=== PATIENT | female | born 1970 | race Two or more races ===

== ENCOUNTER 2024-12-14 06:58 | Inpatient (IN) | payer OTHER ==
[2024-12-14] VITALS (10 sets, daily range): BP systolic 107–137; BP diastolic 68–83; PULSE 82–95; RESP 16–17; TEMP 97.7–98.4; O2SAT 93–95
[~2024-12-14] VITALS: Ht 170.2 cm; Wt 111.5 kg
[2024-12-14] MEDS: VANCOMYCIN HCL 1000 MG VL ONE ×2 (08:10→13:28)
[2024-12-14 08:15] LABS: Alanine Aminotransferase 15 U/L (7-40); Albumin 4.2 g/dL (3.2-4.8); Alkaline Phosphatase 73 U/L (46-116); Anion Gap 8 (5-15); BUN/Creatinine Ratio 10.0 (10.0-20.0); Calcium 9.1 mg/dL (8.7-10.4); Carbon Dioxide 27 mmol/L (20-31); Chloride 105 mmol/L (98-107); Glucose 101 mg/dL (74-106); Potassium 3.6 mmol/L (3.5-5.1); Sodium 140 mmol/L (136-145); Total Protein 7.0 g/dL (5.7-8.2)
[2024-12-14 08:16] LABS: Bilirubin, Total 0.6 mg/dL (0.2-1.0); Blood Urea Nitrogen 8 mg/dL (9-23)
[2024-12-14 08:19] LABS: Hematocrit 41.3 % (36.0-46.0); Hemoglobin 14.0 g/dL (12.2-16.2); Mean Corpuscular Hemoglobin 31.9 pg (28.0-32.0); Mean Corpuscular Volume 94.2 fL (80.0-100.0); Nucleated Red Blood Cells % 0.0 %
[2024-12-14 09:32] LABS: INR 0.93 (0.9-1.15); Partial Thromboplastin Time 28.5 SEC (24.5-34.5); Prothrombin Time 9.9 sec (9.3-11.8)
[2024-12-14] MEDS: ACETAMINOPHEN IV 1000 MG/100ML (10MG/ML) IV ONE (09:47)
[2024-12-14] MEDS ORDERED: fentaNYL CITRATE 100 MCG/2 ML VL ONE (12:44)
[2024-12-14] MEDS ORDERED: PROPOFOL 10 MG/ML 20 ML IV ONE ×2 (12:44→15:56)
[2024-12-14] MEDS ORDERED: MIDAZOLAM HCL 2MG/2ML 2ml VIAL (1mg/ml) ONE (12:44)
[2024-12-14] MEDS ORDERED: SODIUM CHLORIDE LOCK 10 ML ONE (12:44)
[2024-12-14] MEDS ORDERED: ONDANSETRON HCL 4 MG/2 ML VIAL ONE ×2 (12:44→15:33)
[2024-12-14] MEDS ORDERED: LIDOCAINE 1% INJ PF 5ML AMP ONE (12:44)
[2024-12-14] MEDS ORDERED: MORPHINE SULFATE INJ 2 MG/ml SYRG IV PRN (13:00)
[2024-12-14] MEDS ORDERED: ONDANSETRON HCL 4 MG/2 ML VIAL IV PRN ×2 (13:00→16:30)
[2024-12-14] MEDS: LACTATED RINGER'S 1,000 ML IV SCH (13:00)
[2024-12-14] MEDS ORDERED: ACETAMINOPHEN 325 MG TAB PO PRN (13:00)
[2024-12-14] MEDS ORDERED: NITROGLYCERIN 0.4 MG SL TAB SL PRN (13:00)
[2024-12-14] MEDS: TETRACAINE 1% INJ 2 ML VIAL IJ ONE (13:10)
[2024-12-14] MEDS: BUPIVACAINE 0.25% INJ 50ML VIAL ONE (13:26)
[2024-12-14] MEDS: TRANEXAMIC ACID 20 ML ONE (13:26)
[2024-12-14] MEDS: CEFEPIME 1GM/50ML 0 ML IV ONE (13:27)
[2024-12-14] MEDS: PREGABALIN CAPSULE 75 MG CAP PO ONE (13:59)
[2024-12-14] MEDS: CELECOXIB 100 MG CAP PO ONE (13:59)
[2024-12-14] MEDS ORDERED: KETOROLAC TROMETH 30 MG/ML 1ML VIAL ONE (15:33)
[2024-12-14] MEDS: MORPHINE SULF PF 5 MG/10 ML VIAL ONE (15:55)
[2024-12-14] MEDS: KETOROLAC TROMETH 30 MG/ML 1ML VIAL ONE (15:55)
--- NOTE | 2024-12-14 16:00 | DVHOP2 ---
Operative Report - 2 Report Details Date: 12/14/24 Preop Diagnosis: Right Hip Osteoarthritis Postop Diagnosis: Same Surgeon: Jonn Adame MD Anesthesiologist: Victorino Anesthesia: Regional Implant: Farzana Z1, G7 dual mobility Consent: The patient was informed of the risks and benefits of the procedure. These include but are not limited to complications of anesthesia, postoperative infection, incomplete relief of symptoms, recurrence of symptoms, damage to blood vessels, nerves and tendons, deep venous thrombosis, pulmonary embolism and possible need for repeat surgery in the future. Estimated Blood Loss: 300 Name of Procedure Performed Right Total Hip Procedure Details Procedure Details: Preoperative medical and anesthesia clearance was obtained. The patient was seen in the preoperative area, and the operative site was marked and verified by myself, the orthopedic team, and the patient. All questions were addressed, documentation was reviewed, and the patient was transported to the operating room in stable condition. Upon arrival in the operating room, anesthesia was administered. The patient received prophylactic antibiotics and tranexamic acid. A surgical time-out was performed, confirming the correct operative site. The patient was positioned in the lateral decubitus position with appropriate padding to the axilla, lower extremities, and pelvis. The nonoperative leg was fitted with a compression stocking and sequential compression device. The operative site was prepped and draped in the standard sterile fashion. The surgical team utilized body exhaust suits. A posterior incision was made just posterior to the greater trochanter of the right hip. Dissection was carried through the subcutaneous tissue using electr ocautery. The fascia of the gluteus ángela was split in line with its fibers, and a portion of the distal iliotibial band was incised. A Charnley self- retaining retractor was placed, with care taken to protect the sciatic nerve. The hip was internally rotated, and the short external rotators were detached from the greater trochanter. Capsulotomy was performed, and the hip was disl ocated posteriorly. Milla retractors were used to protect the soft tissues, and femoral neck osteotomy was performed according to preoperative templating. The femoral head was removed and measured. Attention was then directed to the acetabulum. Acetabular retractors were placed for exposure. Large osteophytes were identified circumferentially around the acetabulum and were meticulously excised to improve visualization and facilitate component placement. The labrum and pulvinar were excised. Sequential reaming was performed to the appropriate size. A trial acetabular component was inserted and found to have satisfactory fit. The definitive acetabular component was implanted at approximately 45 degrees of abduction and 20 degrees of anteversion, with fixation augmented by the appropriate number of screws. The liner was inserted, confirmed to be fully seated, and tested for stability. Retractors were removed, and attention was turned to the femur. A femoral elevator was used for exposure. The piriformis was excised. A Charnley awl, box osteotome, and lateralizing reamer were used to access the proximal femur. Sequential reaming and broaching were performed, and the appropriate trial broach was selected. The calcar was planed. Multiple trial reductions were performed to assess range of motion, stability, and leg length. The definitive femoral component was implanted, and the femoral trunnion was cleaned and dried. The femoral head was impacted, and the hip was reduced. A dilute betadine soak and pulsatile lavage were performed. Local anesthetic cocktail was injected into the soft tissues. The capsule and short external rotators were reapproximated with #5 FiberWire. Irrigation was repeated, and the fascia was closed with #1 absorbable suture. Subcutaneous tissue was closed with 2-0 absorbable suture, and the skin was closed with surgical david. A sterile dressing was applied, and drapes were removed. An abduction pillow was placed, and the patient was transferred to a hospital bed and taken to the recovery room in stable condition. Instrument and sponge counts were correct. I was present for the entire procedure. Condition Good Disposition Shelter JONN ADAME DO Dec 14, 2024 16:00
[2024-12-14] MEDS ORDERED: hydrALAZINE HCL 20 MG/ML VL IV PRN (16:30)
[2024-12-14] MEDS ORDERED: NALOXONE HCL 0.4 MG/ML VIAL IV PRN (16:30)
[2024-12-14] MEDS ORDERED: FLUMAZENIL 0.1 MG/ML INJ 10ML MDV IV PRN (16:30)
[2024-12-14] MEDS ORDERED: HYDROmorphone HCL 2 MG/ML VL/or syr IV PRN (16:30)
[2024-12-14] MEDS ORDERED: fentaNYL CITRATE 100 MCG/2 ML VL IV PRN (16:30)
[2024-12-14] MEDS ORDERED: ALBU1AER6 IN (18:10)
[2024-12-14] MEDS ORDERED: LOSA-534 PO (18:10)
[2024-12-14] MEDS ORDERED: TRAZ-227 PO (18:10)
[2024-12-14] MEDS ORDERED: AMIT25TA20 PO (18:10)
[2024-12-14] MEDS ORDERED: ARIP5TAB22 PO (18:10)
--- NOTE | 2024-12-14 20:00 | DVH ---
XY PELVIS AP HISTORY: postop TECHNICAL DATA: Frontal view was obtained of the pelvis. COMPARISON: None FINDINGS: Status post right hip torso plasty. No evidence of hardware complication. Subcutaneous emphysema and staple lines noted over the right femoral surgical site. IMPRESSION: 1. Right hip total arthroplasty with near anatomic alignment
[2024-12-14] MEDS: DOCUSATE SOD 100 MG CAP PO SCH (22:13)
[2024-12-15] VITALS (23 sets, daily range): BP systolic 106–149; BP diastolic 66–86; PULSE 18–99; RESP 16–97; TEMP 97.8–98.6; O2SAT 92–100
[2024-12-15 07:17] LABS: Hematocrit 33.0 % (36.0-46.0); Hemoglobin 11.4 g/dL (12.2-16.2); Mean Corpuscular Hemoglobin 32.6 pg (28.0-32.0); Mean Corpuscular Volume 94.7 fL (80.0-100.0); Nucleated Red Blood Cells % 0.0 %
[2024-12-15 07:27] LABS: Chloride 102 mmol/L (98-107); Potassium 4.3 mmol/L (3.5-5.1)
[2024-12-15 07:28] LABS: Anion Gap 7 (5-15); Carbon Dioxide 26 mmol/L (20-31)
[2024-12-15 07:33] LABS: BUN/Creatinine Ratio 15.3 (10.0-20.0); Blood Urea Nitrogen 13 mg/dL (9-23); Calcium 8.3 mg/dL (8.7-10.4); Glucose 126 mg/dL (74-106); Sodium 135 mmol/L (136-145)
--- NOTE | 2024-12-15 08:06 | DVHPN2 ---
Progress Note Date Seen: Dec 15, 2024 Medical Necessity Reason Pt with a Central, PICC or Fol: No Subjective Patient reports: No new complaints Objective vital signs Vital Sign Date Time Temp Pulse Resp B/P (MAP) Pulse Ox O2 Delivery O2 Flow Rate FiO2 12/15/24 06:02 78 16 100 12/15/24 05:00 98.1 122/70 (87) 98.1 12/14/24 20:00 Room Air* 0 21 Total Intake and Output 12/14/24 12/14/24 12/15/24 15:00 23:00 07:00 Intake Total 100 ml 1100 ml Balance 100 ml 1100 ml medications Current Medications Medications Dose Ordered Sig/Tyrell Route Start Time Stop Time Status Last Admin Dose Admin Lactated Ringer's 1,000 ml @ 100 mls/hr Q10H IV 12/14/24 13:00 12/15/24 04:16 100 MLS/HR Acetaminophen 650 mg Q6HP PRN PO 12/14/24 13:00 Oxycodone/ Acetaminophen 1 tab Q4HP PRN PO 12/14/24 13:00 Hydromorphone HCl 1 mg Q2HP PRN IV 12/14/24 13:00 Ondansetron HCl 4 mg Q6HP PRN IV 12/14/24 13:00 Docusate Sodium 100 mg Q12HR PO 12/14/24 22:00 12/14/24 22:13 100 MG Enoxaparin Sodium 40 mg DAILY SC 12/15/24 10:00 Nitroglycerin 0.4 mg Q5MINP PRN SL 12/14/24 13:00 Morphine Sulfate 2 mg Q30M PRN IV 12/14/24 13:00 Oxycodone HCl 10 mg ONCE PRN PO 12/14/24 16:30 Examination: GENERAL:Normal, MSK:Abnormal laboratory and microbiology Laboratory Tests 12/15/24 06:31 Test 12/15/24 06:31 Range/Units Serum Glucose 126 H 74-106 mg/dL Problem List/Assessment/Plan Problem List/Assessment/Plan 54 year old female who is s/p Right BRITNI POD 1 1. Pain control 2. WBAT 3. Physical therapy 4. DVT ppx 5. d/c planning for rehab center possibly tomorrow Plan discussed with: Patient My Orders My Orders Orders - AMIRA,JADEN R GLOVE FORMER Procedure Category Date Status Time Admit ADMIT 12/14/24 Transmitted 12:53 Patient Condition COMORDER 12/14/24 Transmitted Stable 12:53 Regular Diet DIET 12/14/24 Transmitted Lunch Vital Signs LUDWIN 12/14/24 In Process 12:53 Lactated Ringer's PHA 12/14/24 In Process 13:00 Acetaminophen Tablet PHA 12/14/24 In Process (Tylenol Tablet) 13:00 Oxycodone W/ Acet PHA 12/14/24 In Process 5/325mg Tab (Percocet 13:00 Hydromorphone PHA 12/14/24 In Process Injection (Dilaudid 13:00 Ondansetron Hcl PHA 12/14/24 In Process (Zofran) 13:00 Docusate Sodium PHA 12/14/24 In Process Capsule (Colace 22:00 Pt Request For Service PT 12/14/24 Logged 12:53 Call/Page LUDWIN 12/14/24 In Process Hospitalist/Atten Fo 12:53 Sequential LUDWIN 12/14/24 In Process Compression Device 12:53 Pelvis Ap XY 12/14/24 Resulted 16:00 Incentive Spirometry ORDERS 12/14/24 Transmitted 12:53 Enoxaparin Sodium PHA 12/15/24 In Process (Lovenox) 10:00 Nitroglycerin PHA 12/14/24 In Process Sublingual (Ntrostat 13:00 Morphine Sulfate PHA 12/14/24 In Process Injection 13:00 Stat Ekg For Chest LUDWIN 12/14/24 In Process Pain 12:53 Notify Md Of Changes LUDWIN 12/14/24 In Process From Base 12:53 Parks Recreation Coordinator For LUDWIN 12/14/24 In Process 24 Hours 12:53 Emergency Dysrhythmia LUDWIN 12/14/24 In Process Protocol 12:53 Rhythm Strips Once LUDWIN 12/14/24 In Process Every Shift 12:53 Oxygen By Nasal RT 12/14/24 Transmitted Cannula 12:53 * Hospitalist Consult CONS 12/14/24 Transmitted 16:00 Date of Service: Dec 15, 2024 Billing Provider: NAMITA POPE MD Common Visit Codes: NOT BILLABLE JADEN COLLIER NP Dec 15, 2024 08:06
[2024-12-15] MEDS: ENOXAPARIN SOD 40 MG/0.4 ML SYRINGE SC SCH (09:20)
[2024-12-15] MEDS: OXYCODONE W/ ACETAMINOPHEN 5/325MG TABLET PO PRN (10:39)
--- NOTE | 2024-12-15 16:38 | DVHDS2 ---
Discharge Summary Date of Admission Dec 14, 2024 at 12:53 Date of Discharge: Dec 15, 2024 Wounds: If the wound is draining please change the gauze pad on the wound until it stops. If drainage persists past 10 days please notify our office. If there is a sticky gel dressing over your wound, you may leave this in place for as long as it is clean and dry. If it becomes loose or causes skin irritation, it is OK to remove it and place clean gauze over your wound. 1. You might notice some bruising around the surgical site, this is normal. 2. Check your temperature on a daily basis. Please note that a low-grade temp below 101 is not uncommon after surgery especially during the first 3 days. Notify the office if your temperature spikes above 101.5 after the 3rd post- operative date. 3. Many patients experience significant swelling in the thigh, this may extend below the knee and sometimes to the ankle. Swelling increases during the first week and subsides during the following week. 4. Provided you have been on a blood thinner since surgery and have been up and about at least three times per day, the risk of a blood clot is low and this swelling is an expected part of recovery. It will largely or completely resolve by your first post-operative visit. 5. [place], if present, will be removed at 2 weeks during initial post-op visit. Labs/Diagnostic Data: Laboratory Results Test 12/15/24 06:31 12/14/24 07:31 White Blood Count 10.2 10^3/uL (4.4-10.8) Red Blood Count 3.48 10^6/uL (4.0-5.20) Hemoglobin 11.4 g/dL (12.2-16.2) Hematocrit 33.0 % (36.0-46.0) Mean Corpuscular Volume 94.7 fL (80.0-100.0) Mean Corpuscular Hemoglobin 32.6 pg (28.0-32.0) Mean Corpuscular Hemoglobin Concent 34.4 g/dL (32.0-36.0) Red Cell Distribution Width 12.6 % (11.8-14.3) Platelet Count 246 10^3/uL (140-450) Mean Platelet Volume 8.1 fL (6.9-10.8) Neutrophils (%) (Auto) 86.4 % (37.0-80.0) Lymphocytes (%) (Auto) 7.6 % (10.0-50.0) Monocytes (%) (Auto) 6.0 % (0.0-12.0) Eosinophils (%) (Auto) 0.0 % (0.0-7.0) Basophils (%) (Auto) 0.0 % (0.0-2.0) Neutrophils # (Auto) 8.8 10 ^3/uL (1.6-8.6) Lymphocytes # (Auto) 0.8 10 ^3/uL (0.4-5.4) Monocytes # (Auto) 0.6 10 ^3/uL (0-1.3) Eosinophils # (Auto) 0 10 ^3/uL (0-0.8) Basophils # (Auto) 0 10 ^3/uL (0-0.2) Nucleated Red Blood Cells 0.0 % Sodium Level 135 mmol/L (136-145) Potassium Level 4.3 mmol/L (3.5-5.1) Chloride Level 102 mmol/L (98-107) Carbon Dioxide Level 26 mmol/L (20-31) Anion Gap 7 (5-15) Blood Urea Nitrogen 13 mg/dL (9-23) Creatinine 0.85 mg/dL (0.550-1.02) Glomerular Filtration Rate Calc 81 mL/min (>90) BUN/Creatinine Ratio 15.3 (10.0-20.0) Serum Glucose 126 mg/dL (74-106) Calcium Level 8.3 mg/dL (8.7-10.4) Prothrombin Time 9.9 sec (9.3-11.8) Prothrombin Time INR 0.93 (0.9-1.15) Activated Partial Thromboplast Time 28.5 SEC (24.5-34.5) Total Bilirubin 0.6 mg/dL (0.2-1.0) Aspartate Amino Transferase (AST) 18 U/L (13-40) Alanine Aminotransferase (ALT) 15 U/L (7-40) Alkaline Phosphatase 73 U/L (46-116) Total Protein 7.0 g/dL (5.7-8.2) Albumin 4.2 g/dL (3.2-4.8) Beta HCG, Quantitative 0.9 mIU/mL (1.5-4.2) Other Laboratory Tests 12/15/24 06:31 Brief Hx & Hospital Course: right total hip arthroplasty Condition at Discharge: Good Final Diagnosis/Problems List Same Discharge Disposition: Snf Facility Discharge Instruct/Medications Diet: See Comment Diet comment: may advance diet as tolerated drink, plenty of fluids Activity: See Comment Activity comment: 1.You can bear as much weight as you tolerate on your hip unless specifically instructed otherwise. You may use the walking aid which you were discharged with and switch to a cane whenever you feel comfortable doing so. You should use an assistive device until you can walk comfortably without it. Keep in mind that every patient moves at their own speed of recovery so take your time. 2.A physical therapist will visit you at home. 3. Although guarantees against a dislocation do not exist, the hip was noted to be sufficiently stable in surgery. Below are motions that you should dischargenot do for 4-6 weeks, depending on the surgical approach used. If there are questions, please call the office. a.Bend forward past 90 degrees b.Sit on a regular low chair, couch, car seat etc... c.Cross your legs d.Use a regular low toilet seat. e.Sleep on your stomach or on either side. 3.High impact activity such as jumping, aerobics, tennis, and skiing are not permitted during the first 3 months after surgery. These activities can contribute to accelerated wear and should be done with caution after this time. Discuss this with your surgeon if you have questions. 4.Although a bath or whirlpool is NOT permitted during the first 2-3 weeks, you may shower as soon as you get home from the hospital provided you are able to keep your bandage clean and dry and there is no wound drainage. If you are unable to place a secured covering over your bandage bed bath/sponge bath may likely be the more appropriate option. 5.Swimming is not permitted until the wound is healed, which typically occurs approximately 3-4 weeks after surgery. Follow Up/Referral: 1.Driving is not permitted within the first 2 weeks. 2.Your first postoperative visit will take place 2weeks after discharge. Please call the office to arrange this appointment. 3.Antibiotic preventative treatment is required before dental or other invasive procedures. Please ask your surgeon about this at your first postoperative visit. Your hip replacement contains metal which may activate metal detectors. You may wish to carry a letter from your surgeon to communicate this to security personnel. If you experience chest pain, shortness of breath or severe painful calf swelling, go to the nearest emergency room to be evaluated. Please call our office once your situation is stabilized. Medications: 1.You will be discharged with pain medication, Aspirin as a blood thinner and sometimes an anti-inflammatory medication such as Celebrex or Mobic might be prescribed. Please follow the instructions regarding these medicines as provided by your nurse at the hospital. 2.Narcotic pain medication has side effects, including constipation. Please ensure you continue to take stool softeners (Colace, Senna) while taking your pain medication to help protect against constipation. Getting up and moving around at least a few times per day helps with this also. 3.Lovenox 40 Sq x 12 days followed by one regular strength 325 mg coated aspirin daily for 4 weeks after surgery. Then, take one baby aspirin, 81 mg daily for 6 weeks more. A major, yet preventable, complication of Orthopaedic Surgery is a blood clot (DVT). It is important not to miss any doses of this important medication. 4.You should restart all of your prescription medications once discharged unless specifically instructed otherwise. 5.Herbal supplements may be restarted 2 weeks after surgery. Scheduled Amitriptyline Hcl (Amitriptyline Hcl), 100 MG PO HS, (Reported) Aripiprazole (Aripiprazole), 5 MG PO DAILY, (Reported) Losartan Potassium (Losartan Potassium), 1 TAB PO DAILY, (Reported) Trazodone Hcl (Trazodone Hcl), 50 MG PO HS, (Reported) Miscellaneous Medications Albuterol-Budesonide (Airsupra 90-80 Mcg/Act), 1 AER IN, (Reported) Discharge Statement: "Patient was advised to return to the ER or call 911 if any headaches, dizziness, shortness of breath, chest pain, abdominal pain, bleeding, fevers, or worsening of medical condition. Patient was counseled about treatment plan, medications, possible side effects, patientverbalized understanding. All questions were answered to the best of my ability. This discharge took greater then 30 minutes in planning, reviewing documentation, counseling the patient, and discussing with other team members." ASSESSMENT ASSESSMENT Assessment Same JADEN COLLIER NP Dec 15, 2024 16:38
[2024-12-15] MEDS: HYDROmorphone HCL 2 MG/ML VL/or syr IV PRN (18:11)
--- NOTE | 2024-12-15 20:00 | DVHPN ---
DATE: 12/15/2024 SUBJECTIVE: The patient is seen in bed. She is sitting up watching TV. She is in good spirits. The patient states she has been walking most of the day. She complains that she is in a lot of pain at this time and she is requesting her pain medicines. She denies any untoward events from her walking and she does walk with the aid of a walker. I informed her that she has been cleared by Ortho to be discharged, but we both agreed that if she was to go now that she would not be able to get any medications and with the kind of pain she is in, she is very hesitant. OBJECTIVE: VITAL SIGNS: Her temperature is 97.9 with the blood pressure of 133/80, heart rate 89, respiratory rate of 18. O2 saturation is 100% on room air. HEART: S1, S2 regular. LUNGS: Good equal air exchange bilaterally with some crackles in left base. No rhonchi or wheezing. ABDOMEN: Soft and benign. NEUROLOGIC: She is awake, alert and oriented x4. EXTREMITIES: Right hip, there is some mild decreased range of motion. There is some tenderness to palpation. No evidence of any adolfo bleeding. She is neurovascularly intact. LABORATORY DATA: WBC is 10.2 with a hemoglobin of 11.4 and platelet count is 246. Sodium of 135, potassium of 4.3, BUN 13 and creatinine is 0.85. ASSESSMENT: Status post total right hip arthroplasty. PLAN: We will continue with current medications. We will continue with physical therapy and pain management. MD RADHA Dennison/ADALI TID: [id number] RECEIPT: [id number]
[2024-12-15] MEDS ORDERED: ACETAMINOPHEN 325 MG TAB PO PRN (20:45)
--- NOTE | 2024-12-15 20:48 | DVHHP ---
ADMIT DATE: 12/15/2024 ADMITTING HISTORY AND PHYSICAL ATTENDING PHYSICIAN: Dr. Jm Duff. CHIEF COMPLAINT: Right hip pain. HISTORY OF PRESENT ILLNESS: This is a 54-year-old female, [facility] inmate, who was brought to the Emergency Room by Dr. Helton, underwent total hip arthroplasty right and was transferred to the medical floor and I was called to admit the patient for further management. At this time, she complains of some right hip pain causing her some difficulty in walking, but still able to walk with the aid of a walker. She denies any chest pain, cough, shortness of breath, no fever. PAST MEDICAL HISTORY: She has hypertension, hyperlipidemia, and arthritis. PAST SURGICAL HISTORY: She has had right ankle fracture repair. FAMILY HISTORY: Mother had arthritis and has breast cancer. SOCIAL HISTORY: Denies smoking. Has a history of moderate alcohol use. Denies any drug use. She is . She has 3 children, normally resides in [place] and was working with [employer]. She has been incarcerated since 2019 and is due to be released in 2027. REVIEW OF SYSTEMS: GENERAL: Denies any recent weight changes. HEENT: Denies any loss of consciousness or headache. CARDIOVASCULAR: Denies any chest pain or heart disease. RESPIRATORY: Denies cough, shortness of breath, or hemoptysis. GI: Denies nausea or vomiting. : Noncontributory. NEUROLOGIC: Denies any focal deficits. PHYSICAL EXAMINATION: VITAL SIGNS: Her temperature was 98.3 with a blood pressure of 120/69, heart rate of 87, respiratory rate of 17, O2 saturation 100% on 2 L nasal cannula. HEENT: Normocephalic, anicteric sclerae, pink conjunctivae. EOMI. NECK: Supple. No JVD, mass, or bruit. CHEST: Good equal excursion bilateral, nontender. HEART: S1 and S2 regular. No click, murmur, or gallop. LUNGS: Good equal air exchange bilateral. Clear to auscultation. ABDOMEN: Soft, nondistended, nontender. Bowel sounds positive. No mass, guarding, or rebound. NEUROLOGIC: She is awake, alert, and oriented x 4 without any focal deficits. LABORATORY DATA: We have a sodium of 140, potassium 3.6, BUN 8 with a creatinine of 0.8, glucose of 101. Liver enzymes normal. Beta-hCG is negative. WBC is 7 with a hemoglobin of 14 and a platelet of 293. PT is 9.9. PTT is 28. Pelvis x-ray shows right hip total arthroplasty with near anatomic alignment. ASSESSMENT: End-stage osteoarthritis right hip, status post total hip arthroplasty, right. PLAN: We will admit to Med-Surg. Condition is stable. We will put her on a regular diet, Lovenox for DVT prophylaxis. We will treat her with opioids and call for Physical Therapy and encourage ambulation. MD RADHA Dennison/FIDEL TID: [id number] RECEIPT: [id number]
[2024-12-15] MEDS: HYDROcodone-ACET 10/325MG TAB PO PRN (22:39)
[2024-12-16 01:00] VITALS: BP 150/93; PULSE 92; RESP 18; TEMP 98; O2SAT 100
[2024-12-16 05:00] VITALS: BP 163/61; PULSE 102; RESP 18; TEMP 98.2; O2SAT 99
[2024-12-16 08:00] VITALS: PULSE 100
[2024-12-16 09:00] VITALS: BP 135/85; PULSE 95; RESP 18; TEMP 98; O2SAT 96
--- NOTE | 2024-12-16 12:56 | DVHDS ---
DATE OF DISCHARGE: 12/16/2024 ATTENDING PHYSICIAN: Jm uDff MD CHIEF COMPLAINT ON ADMISSION: Right hip pain. HISTORY OF PRESENT ILLNESS: This is a 54-year-old female, [facility] inmate, brought to the operating room by Dr. Helton, underwent total hip arthroplasty and was transferred to Medical Floor, after which I was called to admit for further management. Her main diagnosis was end-stage osteoarthritis of right hip status post total hip arthroplasty, right. HOSPITAL COURSE: She was admitted to Med/Surg in stable condition. She was on a regular diet. She was given Lovenox for DVT prophylaxis, also treated with analgesics. The patient on the same day of surgery was able to ambulate. She is currently ambulating greater than 80 feet. Given her young age of 54 and ambulating greater than 50 feet, I am told by [employer] that she will not be accepted for physical therapy or rehab. She is now being discharged back to the care of the [facility] authorities in good and stable condition. DISCHARGE DIAGNOSES: End-stage osteoarthritis, right hip, status post total hip arthroplasty, right. DISCHARGE MEDICATIONS: She is discharged to take Advil and Tylenol and can follow up with [facility] Services [facility] within the next 3-5 days and she is to be scheduled for follow-up with Ortho as an outpatient as per their recommendation. CONDITION ON DISCHARGE: Stable. MD RADHA Dennison/CHRISTY TID: [id number] RECEIPT: [id number]
[2024-12-16 13:00] VITALS: BP 139/84; PULSE 100; RESP 20; TEMP 98.2; O2SAT 97
[2024-12-16 14:48] VITALS: BP 139/84; PULSE 100; RESP 20; TEMP 98.2; O2SAT 97
== END 2024-12-16 16:30 | DRG 470 ==
LOC: SUR 06:58 → EEVIPCON 12:45 → OVERFLOW 12:53 → TELE-WESTW 17:36
PROVIDERS: ADMIT Nurse Practitioner; ATTEND Orthopaedic Surgery
PROC: 0SR90JZ Replacement of Right Hip Joint with Synthetic Substitute, Open Approach (ICD-10-PCS; principal; 2024-12-14 14:04)
DX: M16.11 Unilateral primary osteoarthritis, right hip (principal); I10 Essential (primary) hypertension; E78.5 Hyperlipidemia, unspecified; Z82.61 Family history of arthritis
CPT/HCPCS: 36415; 72170; 80048; 80053; 84702; 85025; 85610; 85730; 86850; 86900; 86901; 97110; 97116; 97163; A4565; G0378; J0131; J1100; J1885; J2250; J2405; J2704; J3490